=== PATIENT | male | born 1975 | race Asian ===

== ENCOUNTER → 2018-06-27 | Outpatient (CLI) | payer MEDICARE, MEDICAID ==
[~2018-06-27] MED LIST: BACL-19 PO; GABA300C10 PO; GADOBUTROL 7.5 MMOL/7.5 ML PFS ONE
== END | disposition home or self-care (01) ==
LOC: CFH 10:49
PROVIDERS: ATTEND Psychiatry & Neurology Neurology
DX: R90.82 White matter disease, unspecified (principal); G35 Multiple sclerosis
CPT/HCPCS: 70553; A9585

== ENCOUNTER 2019-04-10 11:43 | Outpatient (CLI) | payer MEDICARE, MEDICAID ==
[~2019-04-10] VITALS: Ht 182.9 cm; Wt 72.9 kg
[2019-04-10 09:00] VITALS: BP 131/65
[~2019-04-10 11:43] MED LIST changes: -GADOBUTROL 7.5 MMOL/7.5 ML PFS ONE; +NATALIZUMAB 300 MG in SODIUM CHLORIDE 0.9% 100 ML IV ONE
== END 2019-04-10 23:59 | disposition home or self-care (01) ==
LOC: INFUSION 11:43
PROVIDERS: ATTEND Psychiatry & Neurology Neurology
DX: G35 Multiple sclerosis (principal)
CPT/HCPCS: 96365; J2323

== ENCOUNTER 2019-05-22 09:06 | Outpatient (CLI) | payer MEDICARE, MEDICAID ==
[~2019-05-22] VITALS: Ht 182.9 cm; Wt 71.0 kg
== END 2019-05-22 23:59 | disposition home or self-care (01) ==
LOC: INFUSION 09:06
PROVIDERS: ATTEND Psychiatry & Neurology Neurology
DX: G35 Multiple sclerosis (principal)
CPT/HCPCS: 96365; J2323

== ENCOUNTER 2019-08-15 09:19 | Outpatient (CLI) | payer MEDICARE, MEDICAID ==
[~2019-08-15] VITALS: Ht 182.9 cm; Wt 70.0 kg
[~2019-08-15 09:19] MED LIST changes: -NATALIZUMAB 300 MG in SODIUM CHLORIDE 0.9% 100 ML IV ONE
[2019-08-15] MEDS ORDERED: NATALIZUMAB 300 MG in SODIUM CHLORIDE 0.9% 100 ML IV ONE (10:00)
[2019-08-15 10:40] VITALS: BP 104/69
== END 2019-08-15 23:59 | disposition home or self-care (01) ==
LOC: INFUSION 09:19
PROVIDERS: ATTEND Psychiatry & Neurology Neurology
DX: G35 Multiple sclerosis (principal)
CPT/HCPCS: 96365; J2323

== ENCOUNTER → 2019-09-27 | Outpatient (CLI) | payer MEDICARE, MEDICAID ==
[~2019-09-27] VITALS: Ht 182.9 cm; Wt 67.7 kg
[~2019-09-27] MED LIST changes: +NATALIZUMAB 300 MG in SODIUM CHLORIDE 0.9% 100 ML IV ONE
[2019-09-27 09:40] VITALS: BP 115/75
== END | disposition home or self-care (01) ==
LOC: INFUSION 07:07
PROVIDERS: ATTEND Psychiatry & Neurology Neurology
DX: G35 Multiple sclerosis (principal)
CPT/HCPCS: 96365; J2323